=== PATIENT | male | born 1995 | race Asian ===

== ENCOUNTER 2018-05-19 16:57 | Emergency (ER) | payer OTHER ==
[~2018-05-19] VITALS: Ht 162.6 cm; Wt 59.1 kg
[2018-05-19] MEDS ORDERED: ACETAMINOPHEN 500 MG TAB PO ONE (17:45)
[2018-05-19 19:39] LABS: INFLUENZA A AMPLIFICATION POSITIVE (NEGATIVE); INFLUENZA B AMPLIFICATION NEGATIVE (NEGATIVE)
[2018-05-19 19:53] VITALS: BP 111/60
== END 2018-05-19 20:57 | disposition home or self-care (01) ==
LOC: M ED 16:57
DX: J09.X2 Influenza due to identified novel influenza A virus with other respiratory manifestations (principal); R50.9 Fever, unspecified